=== PATIENT | male | born 1960 | race Caucasian/White ===

== ENCOUNTER 2018-06-08 08:44 | Day surgery (SDC) | payer OTHER, BC ==
[~2018-06-08] VITALS: Ht 182.9 cm; Wt 83.5 kg
[~2018-06-08 08:44] MED LIST: TOPROL XL25 MG PO; spiriva
[2018-06-08 09:09] VITALS: BP 134/84; PULSE 76; TEMP 97.4
[2018-06-08 10:45] VITALS: BP 116/78; PULSE 87; TEMP 97.2
[2018-06-08 11:00] VITALS: BP 96/67; PULSE 74
[2018-06-08 11:15] VITALS: BP 113/72; PULSE 73
[2018-06-08 11:30] VITALS: BP 123/79; PULSE 67
== END 2018-06-08 11:48 | disposition home or self-care (01) ==
LOC: SDCO 08:44
DX: Z12.11 Encounter for screening for malignant neoplasm of colon (principal); D12.3 Benign neoplasm of transverse colon; K62.1 Rectal polyp; K57.30 Diverticulosis of large intestine without perforation or abscess without bleeding
CPT/HCPCS: J2250; J3010; J7030

== ENCOUNTER → 2019-03-22 | Outpatient (CLI) | payer OTHER, BC | LOC: COL.RAD 08:15 | DX: M25.511 Pain in right shoulder (principal) | CPT/HCPCS: A9585; Q9967 ==

== ENCOUNTER 2020-05-09 15:39 | Inpatient (IN) | payer OTHER ==
[~2020-05-09] VITALS: Ht 182.9 cm; Wt 93.8 kg
[2020-05-09 17:46] VITALS: BP 128/78; PULSE 97; TEMP 100
--- NOTE | 2020-05-09 17:51 | NUR ---
PT ADMITTED FROM [facility]. PT IS AXOX4. PT ON 2L NC SATING 90. INCREASED TO 4L. BEDSIDE. PT ORIENTED TO ROOM AND FLOOR. PT COMPLAINING OF PAIN AND UNABLE TO LAY DOWN. MORPHINE 2MG GIVEN PER VERBAL ORDER FROM . LAB BEDSIDE TO DRAW. PT NOW SITTING SIDE OF BED. WILL CONTIUE TO MONITOR.
[2020-05-09] MEDS ORDERED: COMBIRESP IH (18:08)
[2020-05-09] MEDS ORDERED: 00186-0370-20 IH (18:08)
[2020-05-09] MEDS ORDERED: CHANTIX 1MG1 MG PO (18:09)
[2020-05-09 18:11] LABS: PARTIAL THROMBOPLASTIN TIME 32.3 SECONDS (26.0-37.0)
--- NOTE | 2020-05-09 19:00 | NUR ---
Received report from IAIN Willson.
[2020-05-09 19:30] LABS: ARTERIAL BLD GAS O2 SATURATION 92.7 % (92-100); ARTERIAL BLD GAS TCO2 CT 20.5; ARTERIAL BLOOD GAS BASE EXCESS -2.6 (-2-2); ARTERIAL BLOOD GAS HCO3 19.7 meq/L (22-26); ARTERIAL BLOOD GAS PCO2 28.3 mmHg (35-45); ARTERIAL BLOOD GAS PO2 60.5 mmHg (80-100); ARTERIAL BLOOD GAS pH 7.46 (7.35-7.45)
--- NOTE | 2020-05-09 19:45 | NUR ---
Patient sitting on the side of bed and watching television at this time. Moans intermittently in pain. Patient reports 10/10 sharp chest pain that radiates to his back. PRN morphine administered and patient repositioned. RT at the bedside preparing to administer breathing treatment. Vitals within normal limits. No other concerns noted at this time. Will continue to monitor.
[2020-05-09 20:00] VITALS: BP 122/84; PULSE 91; TEMP 97.8
[2020-05-10] VITALS (7 sets, daily range): BP systolic 107–130; BP diastolic 56–77; PULSE 77–95; TEMP 96–97.7
--- NOTE | 2020-05-10 06:45 | NUR ---
Bedside shift report received from IAIN Echavarria. Pt in bed resting with eyes closed, denies needs, will continue to monitor.
--- NOTE | 2020-05-10 08:38 | NUR ---
ASsessment charted. Pt doing well, states pain meds are helping. Pt appears to be breathing in tripod position, called RT for breathing treatment, pt states "this is just my comfort position, im not in distress". Pt has 02 @4L NC, no oxygen at baseline. States he fell one month ago d/t exaustion and heat and has since felt poorly. Sitting at side of bed eating breakfast, tolerating PO well. IVF to LFA and INT to LA/C. Will continue ot monitor.
[2020-05-10 09:04] LABS: BASO % 0.1 % (0.0-2.0); GRAN # 23.6 (1.4-6.5); GRAN % 95.8 % (42.2-75.2); HEMATOCRIT 43.2 % (42.0-52.0); HEMOGLOBIN 14.5 g/dl (13.5-18.0); LYMPH # 0.5 (1.2-3.4); LYMPH % 2.2 % (20.0-51.0); MEAN CELL VOLUME 93 fl (80.0-100.0); MEAN CORPUSCULAR HEMOGLOBIN 31 pg (27.0-31.0); MEAN CORPUSCULAR HGB CONC 34 g/dl (33.0-37.0); MEAN PLATELET VOLUME 9.6 fl (7.4-10.4); MONO # 0.3 (0.1-0.6); MONO % 1.3 % (1.7-9.3); PLATELET COUNT 358 K/mm3 (130-400); RED BLOOD COUNT 4.65 M/mm3 (4.20-5.60); REDCELL DISTRIBUTION WIDTH-CV 12.7 % (11.5-14.5)
[2020-05-10 09:14] LABS: ANION GAP 10 mmol/L (7-16); BLOOD UREA NITROGEN 15 mg/dL (9-20); CALCIUM 9.3 mg/dL (8.4-10.2); CARBON DIOXIDE 22 mmol/L (22-30); CHLORIDE 102 mmol/L (98-107); CREATININE, serum 0.86 (0.66-1.25); GLUCOSE 256 mg/dL (74-106); MAGNESIUM 2.2 mg/dL (1.6-2.3); POTASSIUM 4.7 mmol/L (3.4-5.0); SODIUM 134 mmol/L (137-145)
[2020-05-10 09:41] LABS: TROPONIN-I < 0.012 ng/mL (0.000-0.035)
--- NOTE | 2020-05-10 10:13 | NUR ---
Dr. Maravilla rounding in room as well as Dr. Marlow, transfer orders received, notified of WBC count
--- NOTE | 2020-05-10 12:15 | NUR ---
Escorted pt up to new room 318 via w/c with all belongings. Oriented to room, in bed with call light in reach and oxygen in place. Pt resting in bed, report given to Naida TIMMONS who will resume care.
--- NOTE | 2020-05-10 14:43 | NUR ---
Plan: To return home with hiw Ratna [phone] as care support and EMR. Patient does not have a DPOA, and declined at this time. They reside in [facility]. Assess: SW met with patient at his bedside. Patient reported that he did not utilize any DME and his [facility]. PAtient reported that he did not have any upcoming appointments. Patient reported that [facility] with no concerns. Patient declined any HHS at this time. Action: No other concerns reported currently. Patient was educated about community resources.
--- NOTE | 2020-05-10 17:20 | NUR ---
PT COMPLAINT OF LOW BACK PAIN. PAIN IS SUCCESSFULLY HELPED USING NORCO. PT REQUIRING INSULIN DUE TO STEROID TREATMENT. PT EDUCATED ON THIS SIDE EFFECT OF SOLUMEDROL. PT ALSO EDUCATED ON PURPOSE OF ANTIBIOTIC TREATMENT. PT HAS BEEN NAPPING ON AND OFF THROUGHOUT THE DAY TRYING TO "CATCH UP ON SLEEP". PT PLEASANT IN DEMEANOR, ON 4 LITERS OF O2 NC AT THIS TIME SATTING AROUND 90%. PT REPORTS NOT USING ANY OXYGEN AT HOME. FRESH ICE WATER BROUGHT IN TO PT. NO OTHER NEEDS AT THIS TIME.
--- NOTE | 2020-05-10 20:16 | NUR ---
Sitting at bedside. Assessment complete. Right lung dimished. Left lung clear. Patient on 5 liters. Denies shortness of breath. Heart sounds normal. Bowels active. ABD rounded and firm. No edema noted. INT left forearm and left AC flushed without complications. Reports back and right side pain 4/10. Provided with PRN norco at this time. Denies other needs. Call light in reach.
--- NOTE | 2020-05-10 21:37 | NUR ---
Resting in bed, asleep. Does not appear in any discomfort at this time. Call light in reach.
--- NOTE | 2020-05-11 00:11 | NUR ---
Resting in bed. Denies needs. Denies pain. Call light in reach.
[2020-05-11 03:24] VITALS: BP 116/74; PULSE 95; TEMP 97.8
--- NOTE | 2020-05-11 03:39 | NUR ---
Patient reports 4/10 right side and back pain. Provided with PRN norco. Also reports increase SOA. Patient refused 0200 breathing tx and would like to receive now. Oxygen saturation 91% on 5 liters. Respiratory contact and will provide patient with breathing tx.
--- NOTE | 2020-05-11 06:37 | NUR ---
Patient required x2 doses of norco for pain control in back/right side. Otherwise uneventful night. Sitting at bedside this AM. Call light in reach.
[2020-05-11 06:44] LABS: HEMATOCRIT 41.1 % (42.0-52.0); HEMOGLOBIN 13.8 g/dl (13.5-18.0); MEAN CELL VOLUME 94 fl (80.0-100.0); MEAN CORPUSCULAR HEMOGLOBIN 32 pg (27.0-31.0); MEAN CORPUSCULAR HGB CONC 34 g/dl (33.0-37.0); PLATELET COUNT 346 K/mm3 (130-400); RED BLOOD COUNT 4.37 M/mm3 (4.20-5.60); REDCELL DISTRIBUTION WIDTH-CV 12.8 % (11.5-14.5)
[2020-05-11 06:53] LABS: CALCIUM 9.5 mg/dL (8.4-10.2); CREATININE, serum 0.9 (0.66-1.25); MAGNESIUM 2.3 mg/dL (1.6-2.3); POTASSIUM 4.4 mmol/L (3.4-5.0)
--- NOTE | 2020-05-11 07:20 | NUR ---
Report given to IAIN Medeiros
[2020-05-11 07:42] VITALS: BP 134/65; PULSE 96; TEMP 97.5
[2020-05-11 09:00] LABS: BAND 7 % (0-10); LYMPHOCYTE 3 % (20.0-51.0); NEUTROPHILS 89 % (42.0-75.2)
[2020-05-11 09:01] LABS: PLATELET ESTIMATE NORMAL (NORMAL)
[2020-05-11 09:02] LABS: TOXIC GRANULATION PRESENT
--- NOTE | 2020-05-11 10:13 | NUR ---
Pt assessment completed and charted. medications administered per dec. Pt is A&O, independent in room, on 4L NC. Labored breathing, LAIRD. LLL clear, all other guevara diminished. Pusles strong bilaterally. LAC and LFA INT IVs flush well, no issues. Pt states he has some back pain, he states "maybe from sleeping", received PRN norco. Pt denies abdominal pain, chest pain, N/V/D. No further needs expressed at this time. Pt sitting at EOB writing. Call light within reach.
[2020-05-11 11:31] VITALS: BP 138/70; PULSE 85; TEMP 98
[2020-05-11 16:08] VITALS: BP 115/76; PULSE 77; TEMP 97.7
--- NOTE | 2020-05-11 16:22 | NUR ---
[facility] notified that patient will need home oxygen at discharge. Patient has [employer] and works with the Red Team at the [facility]. SW spoke with Red rail crew member then faxed signed oxygen order, facesheet, H&P, Pulmonology consult, progress notes, and RT assessment to the Red Team at fax#[phone]. JEREMIAH was advised that a nurse would call as soon as the provider reviewed and signed off on orders. JEREMIAH was advised that the providers typically leave at 1600. SW will continue to follow.
[2020-05-11 19:12] VITALS: BP 122/62; PULSE 89; TEMP 98.4
--- NOTE | 2020-05-11 20:10 | NUR ---
Resting in bed. Assessment complete. Right lung field dimished. Left lung guevara clear. Heart sounds normal. Bowels active x4. Pulses present throughout. Bilateral lower leg edema +1. INT left AC and left forearm flushed without complications. Denies pain. Denies other needs at this time. Call light in reach. Will monitor.
--- NOTE | 2020-05-11 20:10 | NUR ---
Resting in bed. Assessment complete. Lungs clear. Heart sounds normal. Bowels active x4. Pulses present throughout. Bilateral lower leg edema +1. INT left AC and left forearm flushed without complications. Denies pain. Denies other needs at this time. Call light in reach. Will monitor.
--- NOTE | 2020-05-12 | NUR ---
Resting in bed. Denies needs. Denies pain. Call light in reach.
[2020-05-12 00:21] VITALS: BP 119/56; PULSE 82; TEMP 98.2
--- NOTE | 2020-05-12 02:39 | NUR ---
Sitting at bedside reports pain at left forearm INT site. Attempted to flush-reports pain. INT left forearm removed. Has INT left AC. Denies other needs at this time. Call light in reach.
[2020-05-12 03:44] VITALS: BP 118/59; PULSE 99; TEMP 97.8
--- NOTE | 2020-05-12 06:38 | NUR ---
Patient had uneventful night. Resting in bed this AM. Call light in reach.
--- NOTE | 2020-05-12 07:12 | NUR ---
Report given to IAIN Medeiros
[2020-05-12 07:24] VITALS: BP 132/66; PULSE 76; TEMP 97.4
--- NOTE | 2020-05-12 08:50 | NUR ---
Signal Intelligence Analyst contacted the Red Team regarding the patient's oxygen, left message. Will attempt to call again.
--- NOTE | 2020-05-12 09:10 | NUR ---
Beater Engineer contacted Dr. Kathy Benedict's nurse regarding the patient's oxygen, left message. Will continue to [facility].
--- NOTE | 2020-05-12 10:44 | NUR ---
Radiology Ct Technologist contacted IAIN Benedict. She reports the consult for oxygen is being processed. There are no guarantees it can be completed this day. CHERI Hardy informed JEREMIAH that the patient was willing to private pay for oxygen until [facility] could [facility]. JEREMIAH contacted [facility] to cobos oxygen. Hayley with [facility] states the cobos is $110 and the patient will have to sign a waiver. Waiver to be faxed to JEREMIAH. JEREMIAH met with the patient, he was agreeable. SW waiting for the waiver. JEREMIAH collaborated the above information with Jak and [place] team. Will continue to follow.
[2020-05-12] MEDS ORDERED: OMNICEF 300MG300 MG PO (11:38)
[2020-05-12] MEDS ORDERED: ELIQUIS 5MG PO (11:44)
[2020-05-12] MEDS ORDERED: NORCO 325 MG-51 TAB PO (11:46)
[2020-05-12] MEDS ORDERED: PREDNISONE10 MG PO (11:46)
--- NOTE | 2020-05-12 11:52 | NUR ---
The patient is to discharge home this day, 05/12. Valve And Regulator Repairer received waiver for the patient. JEREMIAH presented the waiver to the patient. He understood and signed the form. JEREMIAH contacted Mikey with [facility] via speaker phone while in the patient's room and he paid $110 for the month of oxygen with his credit card. JEREMIAH faxed the order to Mikey. Hayley reports they can deliver the oxygen at approximately 12:30 and discharge approximately 1300. There are no additional needs.
[2020-05-12 12:00] VITALS: BP 124/72; PULSE 66
--- NOTE | 2020-05-12 12:05 | NUR ---
Initial visit; Patient thanked Viscose Cellar Charge Hand for looking in on her and offering God's blessings and a prayer card.
[2020-05-12 12:15] LABS: HEMATOCRIT 42.9 % (42.0-52.0); HEMOGLOBIN 14.1 g/dl (13.5-18.0); MEAN CELL VOLUME 95 fl (80.0-100.0); MEAN CORPUSCULAR HEMOGLOBIN 31 pg (27.0-31.0); MEAN CORPUSCULAR HGB CONC 33 g/dl (33.0-37.0); MEAN PLATELET VOLUME 9.8 fl (7.4-10.4); PLATELET COUNT 374 K/mm3 (130-400); RED BLOOD COUNT 4.53 M/mm3 (4.20-5.60); REDCELL DISTRIBUTION WIDTH-CV 13.1 % (11.5-14.5)
[2020-05-12 12:24] LABS: CALCIUM 9.7 mg/dL (8.4-10.2); CREATININE, serum 0.79 (0.66-1.25); POTASSIUM 4.7 mmol/L (3.4-5.0)
--- NOTE | 2020-05-12 12:46 | NUR ---
Pt assessment completed and charted. medications administered per dec. Pt sitting on EOB throughout day. Pt is A&O, independent, on 4L NC satting well. Some LAIRD, states he has some SOB. Rt luung guevara diminished. Lt lung guevara CTA. Pt has LAC INT IV that flushes w/o complications. Pt states he had pain this morning in mid back, rating it 8/10, received PRN norco. Pt now states his pain is 3/10. Pt denies n/v/d, chest pain, abdominal pain. Pt to discharge this afternoon, awaiting O2 to be delivered. Pt denies other needs at this time.
[2020-05-12 13:38] LABS: HYPOCHROMIA 1+; LYMPHOCYTE 4 % (20.0-51.0); NEUTROPHILS 93 % (42.0-75.2); PLATELET ESTIMATE NORMAL (NORMAL)
--- NOTE | 2020-05-12 13:42 | NUR ---
discharge instructions discussed and reviewed w/ patient who verbalized understanding. All questions answered. No further needs expressed. LAC INT IV dc'd w/ catheter tip intact. O2 delivered, pt educated on use. Pt escorted out via WC by KATERINA Donohue to ER entrance where was waiting.
== END 2020-05-12 13:44 | disposition home or self-care (01) | DRG 175 ==
LOC: MEDICAL 15:39 → IMCU 17:09 → MEDICAL 17:09 → IMCU 05-10 10:10 → MEDICAL 05-10 11:22
PROVIDERS: Physician Assistant; ADMIT Internal Medicine
DX: I26.99 Other pulmonary embolism without acute cor pulmonale (principal); J18.9 Pneumonia, unspecified organism; J96.01 Acute respiratory failure with hypoxia; E87.1 Hypo-osmolality and hyponatremia; F17.210 Nicotine dependence, cigarettes, uncomplicated; J43.9 Emphysema, unspecified; F10.10 Alcohol abuse, uncomplicated
CPT/HCPCS: 99223-AI; 99232-AI; 99233-AI; 99239; J0696; J1644; J1815; J2270; J2920